=== PATIENT | male | born 1970 | race Caucasian/White ===

== ENCOUNTER 2018-03-20 13:20 | Outpatient (REF) | payer BC, SELFPAY ==
[2018-03-20 19:05] LABS: Bilirubin Negative (Negative); Blood Trace-intact (Negative); Clarity Clear; Glucose Negative (Negative); Ketones Trace mg/dL (Negative); Leukocyte Esterase Negative (Negative); Nitrite Negative (Negative); Specific Gravity 1.025 (1.005-1.025); Urobilinogen 0.2 EU/dL (Up TO 0.2); pH 6.5 (5-8)
[2018-03-20 20:24] LABS: Bacteria Rare HPF (Negative); C & S Indicated? No; Casts Negative LPF (Negative); Crystals Negative HPF (Negative); Epithelial Cells Negative HPF (Negative); Mucus Negative (Negative); Other Cells Negative (Negative); RBC 0-2 (0-2); WBC Negative HPF (0-5)
== END 2018-03-20 13:40 ==
LOC: LBN 13:20
PROVIDERS: PCP Emergency Medicine; Visit Provider Emergency Medicine
DX: R31.9 Hematuria, unspecified (principal)
CPT/HCPCS: 81003; 81015

== ENCOUNTER 2018-04-22 09:22 | Outpatient (CLI) | payer BC, SELFPAY ==
[2018-04-22 10:39] LABS: HCT 45.8 % (40.0-50.0); HGB 15.6 g/dL (13.5-17.5); Mean Corp. HGB Concentration 34.1 g/dL (32.0-36.0); Mean Corpuscular Hemoglobin 29.5 pg (27.0-33.0); Mean Corpuscular Volume 86.7 fL (80-95); Mean Platelet Volume 12.4 fL (8.0-11.0); Platelet Count 237 x1000/uL (130-400); RBC 5.28 m/cumm (4.50-6.00); RBC Distribution Width 13.1 % (11.8-14.1)
[2018-04-22 11:07] LABS: Anion Gap 12.5 mmol/L (3-11); BUN 17 mg/dL (7-18); CO2 24.5 mmol/L (21.0-32.0); CREATININE 0.81 mg/dL (0.70-1.30); Calcium 9.7 mg/dL (8.5-10.1); Chloride 103 mmol/L (98-107); Glucose 92 mg/dL (70-100); Potassium 4.5 mmol/L (3.5-5.1); Sodium 140 mmol/L (136-145)
== END 2018-04-22 09:42 ==
PROVIDERS: PCP Emergency Medicine; Visit Provider Emergency Medicine
DX: Z01.818 Encounter for other preprocedural examination (principal); R69 Illness, unspecified
CPT/HCPCS: 36415; 80048; 85027

== ENCOUNTER 2020-04-02 19:24 | Outpatient (REF) | payer BC, SELFPAY ==
[2020-04-02 21:19] LABS: HCT 45.8 % (40.0-50.0); HGB 15.7 g/dL (13.5-17.5); MCH 29.2 pg (27.0-33.0); MCHC 34.3 % (32.0-36.0); MCV 85.3 fL (80-95); Platelet Count 250 10^3/uL (130-400); RBC 5.37 10^6/uL (4.36-5.78); RDW 12.3 % (11.8-14.1); RDW-SD 38.4 fL; WBC 8.84 10^3/uL (4.4-10.8)
[2020-04-02 21:47] LABS: Anion Gap 10.1 mmol/L (3-11); BUN 20 mg/dL (7-18); CO2 23.9 mmol/L (21.0-32.0); CREATININE 0.92 mg/dL (0.70-1.30); Calculated LDL 178 mg/dL (<100); Chloride 102 mmol/L (98-107); Cholesterol 269 mg/dL (<200); Glucose 91 mg/dL (74-106); HDL Cholesterol 66 mg/dL (40-60); Potassium 4.4 mmol/L (3.5-5.1); Sodium 136 mmol/L (136-145); Triglyceride 126 mg/dL (<150)
[2020-04-02 22:00] LABS: C-Reactive Protein 0.15 mg/dL (0.0-0.3)
== END 2020-04-02 19:44 ==
LOC: NCHCN 19:24
PROVIDERS: PCP Emergency Medicine; Visit Provider Emergency Medicine
DX: I10 Essential (primary) hypertension (principal); I49.3 Ventricular premature depolarization
CPT/HCPCS: 80048; 80061; 85027; 86140

== ENCOUNTER 2020-04-06 07:30 | Outpatient (RCR) | payer BC, SELFPAY ==
--- NOTE | 2020-04-06 13:45 | HOLTER_ITS ---
APPROVED REPORT Exam Type: HOLTER MONITOR APPLICATION Reason for Test: PVC's Patient Location: O Conclusion This is a 24-hour Holter monitor ordered for the indication of PVCs. ???Patient was in normal sinus rhythm for the majority of the recording with an average heart rate of 88 bpm. ???There were no episodes of SVT and 3 total PACs. ???There were no episodes of ventricular tachycardia but frequent PVCs (6% of the total recording) oc curring mostly during waking hours. ???There were no episodes of atrial fibrillation, no pauses greater than 3 seconds and no evidence of high degree heart block.
== END 2020-04-29 23:59 | disposition home or self-care (01) ==
LOC: RT 07:30
PROVIDERS: PCP Emergency Medicine; Visit Provider Emergency Medicine
DX: I49.3 Ventricular premature depolarization (principal); I49.1 Atrial premature depolarization
CPT/HCPCS: 93225; 93226

== ENCOUNTER 2020-04-28 01:17 | Outpatient (CLI) | payer BC, SELFPAY ==
--- NOTE | 2020-04-28 12:56 | DI.US_ITS ---
APPROVED REPORT EXAM: Comprehensive 2D, Doppler, and color-flow Echocardiogram Patient Location: Out-Patient Cash Register Balancer: Malathi Vora RDCS (AE) Indications: Frequent PVC, Asymptomatic Other Information Study Quality: Adequate Conclusion Normal left ventricular wall thickness and chamber size. Estimated ejection fraction is 60%. Wall m otion is normal Normal right ventricular size and systolic function Both atria are normal in size There are no structural valvular abnormalities Estimated right ventricular systolic pressure is normal Wall motion Left Ventricle The left ventricle is normal size. The left ventricular systolic function is normal. The left ventric ular ejection fraction is within the normal range. There is normal left ventricular wall thickness. T here is normal LV segmental wall motion. There is no ventricular septal defect visualized. LVEF is 60 %. Right Ventricle The right ventricle is normal size. The right ventricular systolic function is normal. The RVSP is 23 .8 mmHg. Atria The left atrium size is normal. The right atrium size is normal. The interatrial septum is intact wit h no evidence for an atrial septal defect. Aortic Valve The aortic valve is normal in structure. Aortic valve is trileaflet. There is no aortic valvular sten osis. No aortic regurgitation is present. Mitral Valve The mitral valve is normal in structure. No evidence of mitral valve stenosis. Trace mitral regurgita tion. Tricuspid Valve The tricuspid valve is normal in structure. There is no tricuspid valve stenosis. Trace to mild tricu spid regurgitation. Pulmonic Valve The pulmonary valve is normal in structure. There is no pulmonic valvular stenosis. There is no pulmo dora valvular regurgitation. Great Vessels The aortic root is normal in size. The ascending aorta is normal in size. Aortic arch is normal in ca liber. IVC is normal in size and collapses >50% with inspiration. Pericardium There is no pericardial effusion. 2D Dimensions IVSD d PLAX 0.77 cm M: 0.6-1.2 LV Vol A2C d MOD 107.9 mL LVPW d PLAX 0.79 cm M: 0.6 - 1.2 LV Vol A4C d MOD 108.2 mL LVID d PLAX 5.55 cm M: 4.2 - 5.8 LA vol/ BSA A2C s A-L 17.9 mL/m2 LVDs 3.70 cm M: 2.5 - 4.0 LA vol/ BSA A4C s A-L 19.3 mL/m2 Ao Root d 2.81 cm M: 3.1 - 3.7 LA Vol/ BSA Biplane s A-L 20.6 mL/m2 RA Area A4C 13.30 cm2 LA Area A4C s MOD 16.05 cm2 RA Vol/ BSA A4C s A-L 17.6 mL/m2 LA Area A2C s MOD 13.92 cm2 Ao Asc Diam d 2.89 cm M: 2.6 - 3.4 LV EF A4C MOD 56.8 % LV EF Teichholz 60.4 % LV EF A2C MOD 59.1 % LVEF (Soriano's) 56.81 % M: 52 - 72 LV EF Biplane MOD 56.8 % LV Volume 81.10 mL M: 62 - 150 SV 61.87 mL LV Volume Index 39.75 mL/m2 M: 34 - 74 SV Index 30.27 mL/m2 LV Vol Biplane MOD 108.9 mL FS 32.65 % M-Mode TAPSE 3.07 cm (M/F) >1.7 LV Diastology MV E' medial 0.092 (>0.07 m/s) E/A Ratio 1.0 LV E/e MED 7.85 (<14) MV E Vmax 0.72 (0.4-1.3 m/s) MV E' lateral 0.111 (>0.1 m/s) MV A Vmax 0.70 (0.4-1.3 m/s) LV E/e LAT 6.50 (<14) MV E/A Ratio 0.99 MV E/E' medial 7.89 MV E/E' lateral 6.51 Aortic Valve LVOT Area 4.10 cm2 AoV Area Vmax 3.41 cm2 LVOT Vmax 1.00 m/s AoV Area/ BSA (Vmax) 1.67 cm2/m2 LVOT Mean Marcus. 0.78 m/s DEANN Mean Marcus. 3.84 cm2 LVOT Peak Grad 4.0 mmHg DEANN Mean Marcus. Index 1.88 cm2/m2 LVOT Mean Grad 2.6 mmHg LVOT VTI 0.212 m LVOT Diam s 2.25 cm AoV Vmax 1.21 m/s Velocity Ratio 0.82 AoV Mean Marcus. 0.83 m/s AoV Peak Grad 5.8 mmHg LVOT SV 87.15 mL AoV Mean Grad 3.1 mmHg AoV VTI 0.217 m AoV Area VTI 4.02 cm2 AoV Area/ BSA (VTI) 1.97 cm/m2 Mitral Valve MV DT 212 (160-240 msec) MV PHT 61 msec MV Area PHT 3.59 cm2 MV VTI 0.195 m MV Area VTI 4.46 (4.0-6.0 cm2) Pulmonary Valve PV Vmax 1.26 (0.5-1.5 m/s) RVOT Peak Gr. 1.95 mmHg PV Peak Grad 6.4 mmHg RVOT Mean Gr. 0.95 mmHg PV Mean Grad 3.0 mmHg RVOT VTI 0.139 m PV VTI 0.224 m RVOT Vmax 0.70 m/s Tricuspid Valve TR Peak Grad 20.7 mmHg TR Vmax 2.28 m/s RA Pressure 3.00 mmHg RVSP (TR) 23.8 mmHg
== END 2020-04-28 01:37 ==
PROVIDERS: PCP Emergency Medicine; Visit Provider Emergency Medicine
DX: I49.3 Ventricular premature depolarization (principal)
CPT/HCPCS: 93306

== ENCOUNTER 2020-10-06 18:25 | Outpatient (REF) | payer BC, SELFPAY ==
[2020-10-06 21:40] LABS: Calculated LDL 114 mg/dL (<100); Cholesterol 204 mg/dL (<200); HDL Cholesterol 64 mg/dL (40-60); Triglyceride 134 mg/dL (<150)
== END 2020-10-06 18:26 | disposition home or self-care (01) ==
LOC: LBN 18:25
PROVIDERS: PCP Emergency Medicine; Visit Provider Emergency Medicine
DX: E78.5 Hyperlipidemia, unspecified (principal)
CPT/HCPCS: 80061

== ENCOUNTER 2021-09-09 02:42 | Outpatient (CLI) | payer BC, SELFPAY | END 2021-09-09 02:43 | disposition home or self-care (01) | LOC: LBO 02:43 | PROVIDERS: PCP Family Medicine; Visit Provider Emergency Medicine | DX: Z12.5 Encounter for screening for malignant neoplasm of prostate (principal) | CPT/HCPCS: 36415; 84153 ==

== ENCOUNTER 2022-01-30 06:51 | Day surgery (SDC) | payer BC, SELFPAY ==
--- NOTE | 2022-01-30 06:39 | W.COLOREPORT ---
Colonoscopy Report Date of procedure: 01/30/22 Pre-op diagnosis general: Colon Cancer Screening, hx of colon polyps Post-op diagnosis procedure note: other (polyps) Procedure: Colonoscopy with polypectomy Surgeon: Mi Green Anesthesia Type: General:No Airway Pathology: other (Ascending polyp, Transverse polyp x2, descending polyps x7, sigmoid polyps x13, rectal polyps x6) Complications: None Disposition: same day Indications: The patient? is a pleasant? 51-year-old male who is here to discuss another screening colonoscopy.? His first colonoscopy was in 2009 at which time he had a tubular adenoma.? Follow-up colonoscopy in 2016 showed inflammatory and hyperplastic polyps.? He denies any changes in bowel habits, melena, hematochezia, unintentional weight loss or family history of colon cancer.? The procedure and risks were discussed.? The prep was reviewed in detail.? Risks, benefits and complications have been reviewed. Complications include but are not limited to bleeding, pain, perforation, missed small lesion/polyp, sore throat, aspiration and adverse reaction to the medications. Questions were entertained and answered to their satisfaction and they wished to proceed. No guarantees were given or implied. Prep: Miralax/Dulcolax Procedure Start Time: 08:37 Procedure End Time: 09:21 Retraction Time: 37 minutes Findings: 29 small polyps scattered throughout the colon Procedure Description: After informed consent was obtained the patient was taken to the procedure room and placed in a left decubitous position. Monitors were applied and a time out was done. The patients name, date of , procedure, allergies to medications and metal in their body was reviewed. The patient was then sedated. Once sedated and comfortable a rectal exam was done. External exam was normal. Internal exam revealed a normal sphincter tone and no palpable masses. The prostate felt smooth but enlarged. The scope was then introduced and retro-flexed. No internal hemorrhoids, polyps or masses were identified on retro-flexion. The scope was then advanced to the cecum without difficulty. The ileocecal vlave and appendiceal orifice were identified. The prep was good. The scope was then slowly retracted over 37 minutes back into the rectum. Polyps were removed with cold forceps in the ascending x1, transverse x2, descending x7, sigmoid x13, and rectal x6. There was no diverticulosis noted. The scope was removed and the patient was woken up and taken back to Same day surgery in stable condition. The patient tolerated the procedure well and there were no immediate complications.
--- NOTE | 2022-01-30 06:40 | W.PM.DSUDISC ---
Discharge Plan Disposition Patient Disposition: HOME Condition: Good Discharge Details Reason For Visit: colonoscopy Attending Provider: Mi Green Primary Care Provider: Maris Membreno Home Meds and New Rx's Prescriptions: Continued rosuvastatin [Crestor] 10 mg tablet 10 mg PO HS Rx Instructions: I Discontinued polyethylene glycol 3350 17 gram/dose powder 238 g PO ONCE Qty: 238 0RF Rx Instructions: take per colonoscopy instructions bisacodyl [Dulcolax (bisacodyl)] 5 mg tablet,delayed release (DR/EC) 5 mg PO ONCE Qty: 4 0RF Rx Instructions: take per colonoscopy instructions Discharge Instructions Instructions: Colorectal Polyps (DC) Additional Instructions: Findings: 29 small polyps Follow up: depends on final pathology Please call if you develop: fevers >101.5 Nausea or Vomiting Abdominal pain that is not transient Rectal bleeding that is more then a tbsp A hard abdomen and inability to pass gas DAY SURGERY UNIT POST ENDOSCOPY INSTRUCTIONS Instructions for everyone who is given Anesthesia: For your safety, please do the following for the next 24 Hours: a. Do not drive or operate dangerous equipment b. Do not drink alcohol beverages or use any recreational drugs for the first 24 hours or while taking pain medications. The medications in your body may have a reaction that can be dangerous. c. Do not make any important decisions or sign any important papers 1. Generally there are no restrictions on your activity after a day or so has gone by, but you may feel a bit fatigued for a few days. 2. After you arrive home you may have a light meal and return to a normal diet as you can tolerate it without feeling sick to your stomach. 3. After surgery, you may feel pain or discomfort. This should be only transient, but if it persists please contact your doctor. 4. If there are any questions regarding the findings of your procedure, please feel free to contact your doctor. 6. If you are unable to contact your doctor with a problem, contact the hospital at [phone]. 7. Continue all your regular medications unless directed otherwise. I understand the above instructions and have no questions. Signature of Patient or Responsible Adult Escort Date/Time Name of Responsible Adult Escort Signature of Nurse Date/Time Activity:: Activity as Tolerated Diet:: As Tolerated Discharge Orders Discharge Orders: Discharge Order (Routine); Ordered 01/30/22 Ordered By: Mi Green
[2022-01-30 07:25] VITALS: BP 125/78; PULSE 71; RESP 16; TEMP 37; O2SAT 96
[2022-01-30] MEDS: Lactated Ringers 1,000 ML 80 ML IV (07:35)
--- NOTE | 2022-01-30 08:21 | ANES.PREOP_ITS ---
General Info Date of Service Date Performed: 01/30/22 Height: 5 ft 7 in Weight: 93.2 kg Body Mass Index (BMI): 32.1 Surgical Procedure: Operation Date: 01/30/22 08:20 Proposed Procedure Side Surgeon p Colonoscopy Mi Green MD Meds Allergies and Home Medications Allergies Allergy/AdvReac Type Severity Reaction Status Date / Time No Known Allergies Allergy Verified 01/30/22 07:24 Home Medication Medication Instructions Recorded bisacodyl 5 mg tablet,delayed 5 mg PO ONCE colonscopy bowel prep 01/20/22 release (Dulcolax (bisacodyl)) #4 tabs polyethylene glycol 3350 17 238 g PO ONCE colonoscopy prep 01/20/22 gram/dose oral powder #238 grams rosuvastatin 10 mg tablet (Crestor) 10 mg PO HS 01/27/22 Current Visit Medications: Current Medications Generic Name Dose Route Start Last Admin Trade Name Freq PRN Reason Stop Dose Admin Hyoscyamine Sulfate 0.125 mg 01/30/22 06:41 Hyoscyamine 0.125 Mg Sl/Oral/Chew SL DIRECTED PRN Ringer's Solution 1,000 mls @ 80 mls/hr 01/30/22 06:00 01/30/22 07:35 IV 02/26/22 23:59 80 mls/hr INFUSION TOYA Administration IV Miscellaneous Supplies 1 each 01/30/22 06:00 Iv Access IV 02/26/22 23:59 DIRECTED TOYA Ondansetron HCl 4 mg 01/30/22 06:41 Ondansetron 4 Mg/2 Ml Vial IVP Q4H PRN PRN Nausea / Vomiting Sodium Chloride 0 ml 01/30/22 06:00 Normal Saline Flush 10 Ml Syr IV 02/26/22 23:59 PRN PRN Sodium Chloride 0 ml 01/30/22 06:00 Normal Saline 10 Ml Vial IJ 02/26/22 23:59 DIRECTED PRN Sterile Water 0 ml 01/30/22 06:00 Water,Injection,Sterile 10 Ml Vial IJ 02/26/22 23:59 DIRECTED PRN PFSH Active Problems Active Problems: Problem Status Onset Code Dental caries 01/16/13 K02.9 Depressive disorder 01/16/13 F32.9 Duodenitis K29.80 Hyperlipidemia 01/16/13 E78.5 Polyp of colon K63.5 Tobacco use disorder 01/16/13 F17.200 Hyperplastic polyp of large intestine K63.5 Asymptomatic PVCs I49.3 Hyperlipidemia E78.5 Medical History Medical History Supraorbital headache (07/01/15) Surgical History Surgical History (Updated 01/30/22 @ 07:24 by Carmen Elam) Colonoscopy - IV Sedation (03/31/16) HERNIA REPAIR Hx of hand surgery left SINUS SURGERY Tobacco Smoking/Tobacco Use Status: Current-Occasional Tobacco Type: smokeless tobacco Smokeless tobacco user: chewing tobacco Passive smoking exposure: Yes Alcohol Alcohol Intake: current Alcohol intake frequency: a few times a week Alcohol ty pe: beer Substance Use Substance use: Never Substance use type: does not use Vital Signs and Lab Results Vital Signs Most Recent Vital Signs in EMR: Most Recent Vital Signs Temp Pulse Resp BP Pulse Ox 37 C 71 16 125/78 96 01/30/22 07:25 01/30/22 07:25 01/30/22 07:25 01/30/22 07:25 01/30/22 07:25 Lab Results Blood Type / Crossmatch: No Data to Display Complete Blood Count: No Data to Display Complete Metabolic Panel: No Data to Display Liver Function Panel: No Data to Display Coagulation Panel: No Data to Display Cardiac Panel: No Data to Display Arterial Blood Gas: No Data to Display Venous Blood Gas: No Data to Display Pancreas Panel: No Data to Display Thyroid Panel: No Data to Display Infectious Disease: No Data to Display Blood Cultures: No Data to Display Toxicology Panel: No Data to Display Anesthesia Assessment and Plan Anesthesia History Personal History: No History of Anesthesia Complications Family History: No Family History of Anesthesia Complications Exercise Tolerance Exercise Tolerance: Metabolic Equivalents>4 Pertinent Negatives Pertinent Negatives: No Symptoms of GERD, No Major Cardiovascular Symptoms or Complaints, No Major Pulmonary Symptoms or Complaints and No History of CVA/TIA Cardiac & Pulmonary Exam Cardiac Exam: Normal S1/S2 Heart Sounds Pulmonary Exam: Clear Bilateral Breath Sounds Implantable Cardiac Device Does patient have a Pacemaker or an ICD?: No Airway Exam Known Difficult Airway: No Mallampati Class: 1 Mouth Opening: Normal (> 3cm) Thyromental Distance: Greater than 3 cm Facial Hair: Full Guerra Neck Range of Motion: Full ROM Neck Circumference: Thick Teeth Condition: Generalized Poor Dentition (Most teeth missing, broken at gum, remaining teeth chipped or broken or rotting) and Loose or Chipped ASA Classification ASA Score: ASA 2 Emergency Case?: No NPO Status NPO Status: NPO Clears >2 hours, Solids >8 hours Anesthesia Plan Resuscitation Status: Full Code Anesthesia Technique: General Anesthesia Airway Planned: Natural Airway Monitors Used: Standard Monitors
[2022-01-30 08:24] VITALS: BMI 32.1
--- NOTE | 2022-01-30 08:48 | BOWEL_PTH ---
PATIENT: Tyree Garduno LOC: [facility] U#:[id number] AGE/SX: 51/M ROOM: RE01/30/[address]: Mi Green MD : 1970 BED: DIS: 01/30/2022 SPEC #: [id number] RECD: 01/30/22 12:19 STATUS: ANTIONE RE #: [id number] RADHA: 01/30/22 08:[address]: Mi Green DEPT: Surgical Specimen RECD BY: Dorie Severino ENTERED: 01/30/22 12:21 SP TYPE: Bowel OTHR DR: Maris Membreno, LM Tissues: 1 - BIOPSY BOWEL 2 - BIOPSY BOWEL 3 - BIOPSY BOWEL 4 - BIOPSY BOWEL 5 - BIOPSY BOWEL Procedures: GROSS AND MICRO LEVEL 4 Comments: [id number]
--- NOTE | 2022-01-30 09:37 | W.ANESPOSTOP ---
Postoperative Evaluation Date, Time and Location Date Performed: 01/30/22 Time Performed: 09:38 Patient Location: Day Surgery Unit Vital Signs Most Recent Imported Vital Signs: Most Recent Vital Signs Temp Pulse Resp BP Pulse Ox 37 C 71 16 125/78 96 01/30/22 07:25 01/30/22 07:25 01/30/22 07:25 01/30/22 07:25 01/30/22 07:25 Most Recent Manually Entered Vital Signs: Adult Blood Pressure: 96/74 Heart Rate: 67 Respirations: 12 Oxygen Saturation (%): 97 Temperature (C): 36.3 C Pain Score (0-10 Scale): 0 Pain Score Most Recent Pain Score: Most Recent Pain Score Pain Level 0 01/30/22 07:25 Assessment Mental Status: Awake (Alert & Oriented to Patient Baseline) Airway and Respiratory Function: Patent airway with normal (patient baseline) respiratory exam Cardiovascular Function: Hemodynamically Stable Hydration Status: Adequately Hydrated Nausea & Vomiting: No Nausea or Vomiting Pain: Pt. Denies Any Pain Peripheral Nerve Block: Patient did not receive a nerve block
[2022-01-30 09:38] VITALS: BP 96/74; PULSE 67; RESP 12; TEMPC 36.3; O2SAT 97
[2022-01-30 09:40] VITALS: BP 96/74; PULSE 72; RESP 16; TEMP 36.2; O2SAT 94
[2022-01-30 10:02] VITALS: BP 107/76; PULSE 75; RESP 18; TEMP 36.5; O2SAT 97
== END 2022-01-30 10:08 | disposition home or self-care (01) ==
PROVIDERS: PCP Nurse Practitioner Family; Visit Provider Surgery
PROC: 0DJD8ZZ Inspection of Lower Intestinal Tract, Via Natural or Artificial Opening Endoscopic (ICD-10-PCS; CPT 45378; principal; 2022-01-30 08:15)
DX: Z12.11 Encounter for screening for malignant neoplasm of colon (principal); K63.5 Polyp of colon; Z86.010 Personal history of colon polyps; K62.1 Rectal polyp; K63.89 Other specified diseases of intestine
CPT/HCPCS: 45380; 88305

== ENCOUNTER 2022-05-25 02:27 | Outpatient (CLI) | payer BC, SELFPAY ==
[2022-05-25 12:39] LABS: Hemoglobin A1C 5.5 % (<5.7)
[2022-05-25 12:48] LABS: Anion Gap 9.6 mmol/L (3-11); BUN 27 mg/dL (7-18); CO2 23.4 mmol/L (21.0-32.0); Calcium 9.5 mg/dL (8.5-10.1); Calculated LDL 144 mg/dL (<100); Chloride 104 mmol/L (98-107); Cholesterol 227 mg/dL (<200); Estimated GFR 91.12 (mL/min/1.73m2); Glucose 102 mg/dL (74-106); HDL Cholesterol 77 mg/dL (40-60); Potassium 4.6 mmol/L (3.5-5.1); Sodium 137 mmol/L (136-145); TSH (W/Ref FT4) 1.16 uIU/mL (0.36-3.74); Triglyceride 33 mg/dL (<150)
== END 2022-05-25 02:28 | disposition home or self-care (01) ==
LOC: LOS 02:28
PROVIDERS: PCP Nurse Practitioner Family; Visit Provider Nurse Practitioner Family
DX: Z00.00 Encounter for general adult medical examination without abnormal findings (principal); E78.5 Hyperlipidemia, unspecified; Z13.1 Encounter for screening for diabetes mellitus; Z13.29 Encounter for screening for other suspected endocrine disorder
CPT/HCPCS: 36415; 80048; 80061; 83036; 84443

== ENCOUNTER 2023-08-24 00:55 | Outpatient (CLI) | payer BC, SELFPAY ==
[2023-08-24 12:52] LABS: Anion Gap 10.5 mmol/L (3-11); BUN 23 mg/dL (7-18); CO2 24.5 mmol/L (21.0-32.0); CREATININE 0.9 mg/dL (0.70-1.30); Calcium 9.2 mg/dL (8.5-10.1); Calculated LDL 178 mg/dL (<100); Chloride 108 mmol/L (98-107); Cholesterol 258 mg/dL (<200); Estimated GFR 102.12 (mL/min/1.73m2); Glucose 105 mg/dL (74-106); HDL Cholesterol 70 mg/dL (40-60); Potassium 4.4 mmol/L (3.5-5.1); Sodium 143 mmol/L (136-145); Triglyceride 50 mg/dL (<150)
== END 2023-08-24 00:56 | disposition home or self-care (01) ==
LOC: LOS 00:55
PROVIDERS: PCP Nurse Practitioner Family; Visit Provider Nurse Practitioner Family
DX: Z00.00 Encounter for general adult medical examination without abnormal findings (principal)
CPT/HCPCS: 36415; 80048; 80061

== ENCOUNTER 2024-05-02 01:20 | Outpatient (CLI) | payer BC, SELFPAY ==
[2024-05-02 14:21] LABS: Anion Gap 11.4 mmol/L (3-11); BUN 14 mg/dL (7-18); CO2 23.6 mmol/L (21.0-32.0); CREATININE 0.9 mg/dL (0.70-1.30); Calcium 9.1 mg/dL (8.5-10.1); Calculated LDL 78 mg/dL (<100); Chloride 106 mmol/L (98-107); Cholesterol 172 mg/dL (<200); Estimated GFR 102.12 (mL/min/1.73m2); Glucose 109 mg/dL (74-106); HDL Cholesterol 76 mg/dL (40-60); Sodium 141 mmol/L (136-145); Triglyceride 90 mg/dL (<150)
[2024-05-02 22:28] LABS: PSA, Screening 1.3 ng/mL (<=3.5)
== END 2024-05-02 01:21 | disposition home or self-care (01) ==
LOC: LBO 01:20
PROVIDERS: PCP Nurse Practitioner Family; Visit Provider Nurse Practitioner Family
DX: E78.5 Hyperlipidemia, unspecified (principal); Z12.5 Encounter for screening for malignant neoplasm of prostate
CPT/HCPCS: 36415; 80048; 80061; 84153